=== PATIENT | male | born 1950 | race Caucasian/White ===

== ENCOUNTER 2022-03-26 19:27 | Inpatient (IN) | payer MEDICARE, BC ==
[2022-03-26] MEDS ORDERED: Sodium Chloride 0.9% 10 ML Syringe FLUSH PRN (19:54)
[2022-03-26 20:13] LABS: ESTIMATED GFR 95 mL/min (>60)
[2022-03-26] MEDS ORDERED: Albuterol 0.083% 2.5 MG/3 ML Neb Soln NEB ONE (20:29)
[2022-03-26] MEDS ORDERED: methylPREDNISolone Sodium Succinate 125 MG/2 ML SDV IVPUSH ONE (20:29)
[2022-03-26] MEDS ORDERED: Iopamidol 755 Mg/ML 75 ML Bottle IV ONE (22:24)
[2022-03-26] MEDS ORDERED: Azithromycin 500 MG Tab PO ONE (22:31)
[2022-03-27 06:34] LABS: ESTIMATED GFR 95 mL/min (>60)
[2022-03-27] MEDS ORDERED: Levofloxacin/Dextrose 5%-Water 750 MG in Premix Bag 1 BAG IV SCH (09:00)
[2022-03-27] MEDS: Nicotine 21 MG/24 Hr Patch TRDERM SCH (09:27)
[2022-03-27] MEDS: Enoxaparin 40 MG/0.4 ML Syringe SUBCUT SCH (09:28)
[2022-03-27] MEDS: Albuterol/Ipratropium 3.0-0.5 MG/3 ML Neb Soln INH SCH ×4 (09:29→20:42)
[2022-03-27] MEDS: methylPREDNISolone Sodium Succinate 125 MG/2 ML SDV IVPUSH SCH (09:29)
[2022-03-27] MEDS: Sodium Chloride 0.9% 10 ML Syringe FLUSH PRN (11:03)
[2022-03-27] MEDS ORDERED: Atenolol 50 MG Tab PO SCH (19:00)
[2022-03-27] MEDS ORDERED: Azithromycin 250 MG Tab PO SCH (19:00)
[2022-03-27] MEDS ORDERED: Tamsulosin 0.4 MG Cap.ER PO SCH (19:00)
[2022-03-27] MEDS ORDERED: Lisinopril 5 MG Tab PO SCH (19:00)
[2022-03-27] MEDS ORDERED: Rosuvastatin 10 MG Tab PO SCH (19:00)
[2022-03-28] MEDS: Albuterol/Ipratropium 3.0-0.5 MG/3 ML Neb Soln INH SCH ×2 (06:09→11:07)
[2022-03-28] MEDS: Sodium Chloride 0.9% 10 ML Syringe FLUSH PRN (08:48)
[2022-03-28] MEDS: methylPREDNISolone Sodium Succinate 125 MG/2 ML SDV IVPUSH SCH (08:48)
[2022-03-28] MEDS: Enoxaparin 40 MG/0.4 ML Syringe SUBCUT SCH (08:48)
[2022-03-28] MEDS: Nicotine 21 MG/24 Hr Patch TRDERM SCH (08:49)
[2022-03-29] MEDS ORDERED: Levofloxacin/Dextrose 5%-Water 750 MG in Premix Bag 1 BAG IV SCH (09:00)
== END 2022-03-28 10:50 | disposition home health service (06) | DRG 190 ==
LOC: FB.ED 19:27 → FB.MS 22:35
PROVIDERS: ADMIT Emergency Medicine; ATTEND Family Medicine
DX: J44.0 Chronic obstructive pulmonary disease with (acute) lower respiratory infection (principal); J18.9 Pneumonia, unspecified organism; Z93.6 Other artificial openings of urinary tract status; T17.590A Other foreign object in bronchus causing asphyxiation, initial encounter; J44.1 Chronic obstructive pulmonary disease with (acute) exacerbation; G35 Multiple sclerosis; R91.1 Solitary pulmonary nodule; F17.220 Nicotine dependence, chewing tobacco, uncomplicated; F17.210 Nicotine dependence, cigarettes, uncomplicated; I10 Essential (primary) hypertension; Z99.3 Dependence on wheelchair; Z88.0 Allergy status to penicillin; Z71.6 Tobacco abuse counseling
CPT/HCPCS: 36415; 71045; 71275; 80048; 81001; 85027; 85379; 86140; 87086; 87088; 87186; J2930; Q9967; 83735; 84484; 85025; 94640; 96374; 99285-25; A9270-GY; J1650; J1956; J3490; J7620

== ENCOUNTER 2022-06-21 15:20 | Emergency (ER) | payer MEDICARE, BC ==
[2022-06-21] MEDS ORDERED: Albuterol/Ipratropium 3.0-0.5 MG/3 ML Neb Soln NEB ONE (15:25)
[2022-06-21] MEDS ORDERED: predniSONE 20 MG Tab PO ONE (15:26)
[2022-06-21 16:54] LABS: ESTIMATED GFR 80 mL/min (>60)
[2022-06-21] MEDS ORDERED: Iopamidol 755 Mg/ML 75 ML Bottle IV ONE (19:43)
[2022-06-21] MEDS ORDERED: Lidocaine 2% HCl 6 ML Jel MM ONE (20:15)
[2022-06-21] MEDS ORDERED: Doxycycline 100 MG Tab PO ONE (20:59)
== END 2022-06-21 22:20 | disposition home or self-care (01) ==
LOC: FB.ED 15:20
DX: U07.1 COVID-19 (principal); J44.9 Chronic obstructive pulmonary disease, unspecified; I10 Essential (primary) hypertension; Z87.891 Personal history of nicotine dependence; Z88.0 Allergy status to penicillin; Z79.899 Other long term (current) drug therapy
CPT/HCPCS: 36415; 51702; 71045; 71275; 80053; 81001; 83605; 83880; 84484; 85025; 85379; 87086; 99285-25; A9270-GY; J7512; J7620; Q9967

== ENCOUNTER 2023-06-02 15:21 | Emergency (ER) | payer MEDICARE, BC ==
[2023-06-02 16:09] LABS: BASOPHILS ABSOLUTE AUTO 0.1 x10-3/uL (0.0-0.3); BASOPHILS PERCENT AUTO 0.6 % (0.3-3.8); EOSINOPHILS ABSOLUTE AUTO 0.3 x10-3/uL (0.0-0.6); HEMOGLOBIN 15.2 g/dL (12.9-17.7); LYMPHOCYTES ABSOLUTE AUTO 2.1 x10-3/uL (0.5-4.5); LYMPHOCYTES PERCENT AUTO 24.8 % (15.8-45.3); MEAN CORPUSCULAR HEMOGLOBIN 31.9 pg (27.0-33.3); MEAN CORPUSCULAR HGB CONC 34.4 g/dL (28.7-35.3); MEAN CORPUSCULAR VOLUME 92.8 fL (80.8-98.7); MEAN PLATELET VOLUME 6.7 fL (6.7-11.0); MONOCYTES ABSOLUTE AUTO 0.8 x10-3/uL (0.0-1.2); MONOCYTES PERCENT AUTO 8.9 % (5.5-15.2); NEUTROPHILS ABSOLUTE AUTO 5.3 x10-3/uL (1.7-6.9); NEUTROPHILS PERCENT AUTO 62.7 % (40.3-71.8); PLATELET COUNT,PLT 304 x10(3)uL (117-477); RED BLOOD CELL COUNT 4.75 x10(6)uL (3.90-5.90); RED CELL DISTRIBUTION WIDTH 13.1 % (12.4-15.0); WHITE BLOOD CELL COUNT,WBC 8.4 x10-3/uL (3.2-10.1)
[2023-06-02] MEDS: Potassium Chloride 20 MEQ Tab.ER PO ONE ×2 (16:32→18:05)
== END 2023-06-02 18:08 | disposition home or self-care (01) ==
LOC: FB.ED 15:21
DX: E87.6 Hypokalemia (principal); J44.9 Chronic obstructive pulmonary disease, unspecified; I10 Essential (primary) hypertension; Z86.16 Personal history of COVID-19; Z87.891 Personal history of nicotine dependence; Z79.899 Other long term (current) drug therapy; Z88.0 Allergy status to penicillin
CPT/HCPCS: 36415; 83735; 85025; 93005; 93010; 99283; 99285; A9270-GY

== ENCOUNTER 2023-12-18 09:15 | Emergency (ER) | payer MEDICARE, BC ==
[2023-12-18] MEDS: Lidocaine 2% HCl 6 ML Jel ONE (10:16)
[2023-12-18 10:46] LABS: BILIRUBIN,URINE NEGATIVE (NEGATIVE); GLUCOSE,URINE NORMAL (NORMAL); KETONES,URINE NEGATIVE (NEGATIVE); LEUKOCYTE ESTERASE,URINE LARGE (NEGATIVE); NITRITE,URINE NEGATIVE (NEGATIVE); OCCULT BLOOD,URINE LARGE (NEGATIVE); PROTEIN,URINE NEGATIVE (NEGATIVE); UROBILINOGEN,URINE NORMAL (NEGATIVE)
[2023-12-18 11:03] LABS: APPEARANCE,URINE CLOUDY (CLEAR); BACTERIA,URINE FEW (NS); COLOR,URINE YELLOW (YELLOW); RBC,URINE >100 (0-5); SQUAMOUS EPITHELIAL CELLS,UR RARE (NS,R,O); WBC,URINE >100 (0-5); YEAST,URINE FEW (NS)
[2023-12-18] MEDS: Doxycycline 100 MG Tab PO ONE (11:56)
[2023-12-18] MEDS: Cephalexin 500 MG Cap PO ONE (11:56)
== END 2023-12-18 12:17 ==
LOC: FB.ED 09:15
DX: T83.091A Other mechanical complication of indwelling urethral catheter, initial encounter (principal); N39.0 Urinary tract infection, site not specified; R31.9 Hematuria, unspecified; I10 Essential (primary) hypertension; J44.9 Chronic obstructive pulmonary disease, unspecified; Z86.16 Personal history of COVID-19; Z88.0 Allergy status to penicillin; Z79.51 Long term (current) use of inhaled steroids; Z79.899 Other long term (current) drug therapy; Z87.891 Personal history of nicotine dependence; Y73.2 Prosthetic and other implants, materials and accessory gastroenterology and urology devices associated with adverse incidents
CPT/HCPCS: 51702; 81001; 87086; 87088; 99284; A9270; 87186